=== PATIENT | female | born 2000 | race Caucasian/White ===

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

== ENCOUNTER 2019-01-10 09:45 | Emergency (ER) | payer OTHER, MEDICAID, SELFPAY ==
[2019-01-10 09:45] VITALS: BP 132/70; PULSE 87; RESP 16; TEMP 36.7; O2SAT 99; BMI 36.0
--- NOTE | 2019-01-10 09:57 | US_ITS ---
STUDY: ABDOMINAL ULTRASOUND - RIGHT UPPER QUADRANT REASON FOR VISIT: Female, 18 years old. Right upper quadrant pain. TECHNIQUE: Ultrasound evaluation of the right upper quadrant was performed with real-time and static chavez-scale imaging. TECHNICAL QUALITY: Adequate. COMPARISON: None. FINDINGS: Liver: The liver measures 16.2 cm. There is normal echogenicity of the liver. The bile ducts are within normal limits. There is hepatic color flow. The direction of portal flow is hepatopetal. There is no demonstrated mass lesion. Gallbladder: Normal distended gallbladder. The gallbladder wall measures 3.0 mm. There is a negative sonographic Mcallister's sign. There is no pericholecystic fluid. There are no gallstones. A small amount of sludge is seen within the gallbladder lumen. Common Bile Duct (C.B.D.): The common bile duct measures 4.0 mm. Pancreas: Normal size of the head, body of the pancreas. The tail portion is obscured due to overlying bowel gas. There is normal echogenicity of the pancreas. There is no demonstrated pancreatic mass or cyst. Right Kidney: Normal size of the right kidney. The right kidney measures 12.9 cm x 5.3 cm x 3.9 cm. Normal renal cortex. The right cortex measures 1.5 cm. There is no demonstrated renal mass or cyst. There is no right hydronephrosis. US/Gallbladder IMPRESSION: A small amount of sludge is seen in the gallbladder lumen. Electronically Signed: Derrell Suresh, at 11:04 EDT , Service support ,
--- NOTE | 2019-01-10 09:59 | ED.DCSUM_ITS ---
- ER Visit Summary Date of Service: 01/10/19 Chief Complaint: Abdominal pain History of Present Illness: The patient is a 18 F who is G1, P0 at 16 weeks. She has had upper and lower abdominal pain intermittently over the past 2 weeks. The pain is sharp. Denies any other associated symptoms like nausea, vomiting, or diarrhea. Denies urinary symptoms like burning or bleeding. 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 Denies back pain or fevers. Denies any history of abdominal surgery. She had an ultrasound about a month ago that showed an intrauterine . She has not had any complications with the so far. Denies cardiac or respiratory symptoms. Denies any leg swel ling or leg pain. Physical Examination: Afebrile and vital signs unremarkable. Patient alert and oriented. No acute distress. Skin normal in color. Regular heart rate. No re spiratory distress. Abdomen is tender in the epigastric region. No guarding or rebound. Back is nontender. Extremities nontender with no edema. Strong equal pulses. Test Results: Laboratory studies, urinalysis, right upper quadrant ultrasound, and heart tones are pending. Emergency Department Course and Treatment: I am not sure if the patient's upper and lower abdominal pains are related. I will check labs and right upper quadrant ultrasound. I do not have any suspicion for respiratory, cardiac, or vascular disease at this point. We will check urinalysis and heart tones. I do not have any suspicion for ectopic . She is not having any bleeding or discharge. heart rate in the 130s. Hemoglobin 11.9, otherwise CBC normal. CMP and lipase normal. Right upper quadrant ultrasound shows gallbladder sludge but no other abnormal findings. Urinalysis shows 1+ bacteria. Culture pending. Even that she is and has some lower/suprapubic pain, will treat with Macrobid. Patient's upper abdominal work-up is reassuring. Will start Pepcid. She has follow-up on January 13 with her SHIATSU THERAPIST. She should return for any new or worsening issues. Treatment Plan: As above Disposition: Discharge Impression: 1. Epigastric pain 2. Bacteuria 3. This note was generated with [employer] software. It may contain incorrect words, spelling, and punctuation that were not noted in review of the chart prior to signing ED Disposition - Plan for ED Patient: Referrals: Care Physician,No Primary [Primary Care Provider] -
[2019-01-10 10:25] LABS: Absolute Lymphocyte Count 1.76 X10^3/ul (0.83-4.51); Absolute Neutrophil Count 6.3 X10^3/uL (2.0-7.7); Basophil# 0.01 X10^3/uL; Basophil% 0.1 % (0-1); Eosinophil# 0.31 X10^3/uL; Eosinophils% 3.3 % (0-5); Hematocrit 34.8 % (37-47); Hemoglobin 11.9 g/dl (12.0-15.0); Lymphocyte # 1.76 X10^3/ul (4.0); Lymphocyte % 18.7 % (19-41); Mean Corp Hgb Conc 34.2 g/gl (32-36); Mean Corpuscular Volume 84.9 fL (81-99); Mean Platelet Vol. 10.3 fl (6.2-12.0); Monocyte# 0.96 X10^3/uL; Monocyte% 10.2 % (0-10); Neutrophil # 6.34 X10^3/uL (2.7-7.7); Neutrophil % 67.2 % (47-70); Platelet Count 211 K/mm3 (150-450); RBC Distribution Width CV 12.5 % (11.6-14.6); RBC Distribution Width SD 37.9 fl (35.1-43.9); White Blood Count 9.4 K/mm3 (4.4-11.0)
[2019-01-10 10:26] LABS: POSITIVE COUNT NO; POSITIVE DIFFERENTIAL NO; POSITIVE MORPHOLOGY NO
[2019-01-10 10:40] LABS: AST(SGOT) 10 U/L (15-37); Alanine Aminotransfer ALT/SGPT 27 U/L (13-56); Albumin, Serum 3.2 g/dL (3.2-5.0); Alkaline Phosphatase 53 U/L (45-117); Anion Gap 7 (5-15); BUN 6 mg/dL (7-18); BUN/Creat Ratio 10.5 RATIO (10-20); Calcium,Total 8.4 mg/dL (8.5-10.1); Chloride 110 mmol/L (98-107); Creatinine, Serum 0.57 mg/dL (0.55-1.02); EST Glomerular Filtration Rate 145 mL/min (>60); Est Glom Filt Rate - Afr Amer 175 mL/min (>60); Estimated Creatinine Clearance 154.38 ml/min; Globulin 3.3 g/dL (2.2-4.2); Glucose 87 mg/dL (74-106); Lipase 94 U/L (73-393); Potassium 3.7 mmol/L (3.5-5.1); Protein, Total 6.5 g/dL (6.4-8.2); Sodium Level 140 mmol/L (136-145)
[2019-01-10 11:54] LABS: Mucous, Urine 0 SEEN /hpf (<or=2+); Red Blood Cells-Urine 0 SEEN /hpf (0-5); White Blood Cells 0 SEEN /hpf (0-5)
[2019-01-10 11:58] LABS: Color, Urine Yellow (Yellow); Glucose, Dipstick Normal (Normal); Ketone-Dipstick Negative (Negative); Leukocyte Esterase-Dipstick Negative /ul (Negative); Nitrite-Dipstick Negative (Negative); Occult Blood-Urine Negative /ul (Negative); Protein-Dipstick Negative (Negative); Urine Bilirubin Dipstick Negative (Negative); Urine Clarity Sl. Cloudy (Clear); Urine Urobilinogen Normal (Normal); Urine pH 6.5 (5.0 - 8.0)
[2019-01-10 12:04] LABS: Bacteria 1+ /hpf (None Seen); Squamous Epithelial Cells - UA 0-5 SEEN /hpf (5-10)
--- NOTE | 2019-01-10 12:15 | ED.DEP ---
ED Disposition - Plan for ED Patient: Instructions: ABDOMINAL PAIN, Unknown Cause, (Female) Prescriptions: Nitrofurantoin Macrocrystals [Macrobid] 100 mg PO Q12 #10 cap Prescription Printed Famotidine [Pepcid] 20 mg PO BID #28 tab Prescription Printed Additional Instructions: follow up with your ob on sunday
[2019-01-10 12:36] VITALS: PULSE 80; RESP 16; O2SAT 97
== END 2019-01-10 12:37 | disposition home or self-care (01) ==
LOC: ED 10:01
PROVIDERS: Emergency Provider Emergency Medicine
DX: O26.892 Other specified pregnancy related conditions, second trimester (principal); R10.13 Epigastric pain; R82.71 Bacteriuria; Z3A.16 16 weeks gestation of pregnancy
CPT/HCPCS: 76705; 80053; 81001; 83690; 85025; 87086; 87088; 99284; A4216

== ENCOUNTER 2019-03-23 17:19 | Emergency (ER) | payer OTHER, MEDICAID, SELFPAY ==
[2019-03-23 17:19] VITALS: BP 148/76; PULSE 91; RESP 17; TEMP 37; O2SAT 97; BMI 37.5
--- NOTE | 2019-03-23 17:42 | EKG12_ITS ---
Test Reason : Blood Pressure : / mmHG Vent. Rate : 061 BPM Atrial Rate : 061 BPM P-R Int : 130 ms QRS Dur : 096 ms QT Int : 392 ms P-R-T Axes : 029 031 032 degrees QTc Int : 394 ms Normal sinus rhythm Normal ECG Confirmed by JAGJIT WICK, JESSICA ([id number]), acquisition editor THO HARTMAN ([id number]) on 03/24/2019 9:08:38 AM Referred By: ELIZABETH Confirmed By:JESSICA DANIELSON MD
--- NOTE | 2019-03-23 17:43 | ED.DCSUM_ITS ---
History of Present Illness Chief Complaint: Dizziness Informant: Patient Onset: Days Current Severity: Mild Maximum Severity: Moderate Narrative: Patient presents with a 3-day history of intermittent dizziness and frontal headache. She was at work 2 days ago when she states she became lightheaded. Coworkers said that she was changing color (getting pale). She had a near syncopal episode and started to fall, but her significant other caught her. She had another episode of dizziness today at work and coworkers told her that she was changing color again. She did not pass out today. She is had intermittent frontal headaches that are not necessarily associated with the dizzy episodes. She denies history of head injury. She denies history of migraines. Patient is currently 23 weeks . She has been feeling normal movement. Past Medical History - Allergies and Home Meds Allergies/Adverse Reactions: Allergies chocolate flavor Allergy (Verified 03/23/19 17:19) Anaphylaxis Primary Care Physician: Care Physician,No Primary [Primary Care Provider] - Doctors: [facility] RN CLINICAL RESOURCE Prior records reviewed: Yes Past Medical History: - - Reviewed Lives: Spouse/ Significant Other Smoking Status: Current every day smoker Review of Systems General: Denies: Chills, Fever Eyes: Denies: Visual changes - bilaterally ENT: Denies: Bilateral ear pain Cardiovascular: Denies: Chest pain, Palpitations, Heart racing Respiratory: Denies: Dyspnea, Cough Gastrointestinal: Denies: Abdominal pain, Nausea, Vomiting, Diarrhea Genitourinary: Denies: Dysuria Musculoskeletal: Denies: Back pain Skin: Denies: Rash Neurological: Reports: Headache, - - Dizzy episodes Endocrine: Denies: Polyuria, Polydipsia Hematologic: Denies: Easy bruising Allergy: Denies: Uticaria Physical Exam Vital Signs/Narrative: Vital Signs Temp Pulse Resp BP Pulse Ox 03/23/19 17:19 98.6 F 91 17 148/76 H 97 Inital Vital Signs reviewed: Yes General: Well nourished, Well developed Head: Normocephalic ENT: Moist mucous membranes Neck: Supple Cardiovascular: Regular rate, Regular rhythm Respiratory: No distress, CTA bilaterally Abdomen: Soft, Nontender - Gravid Extremities: Nontender Skin: Normal color, No rash Neurological: Alert, Oriented x3 Psychological: Normal affect Diagnostic/Tx/Re-eval Laboratory Results 03/23/19 03/23/19 03/23/19 17:30 17:30 18:00 WBC 14.3 H RBC 3.66 L Hgb 11.1 L Hct 33.2 L MCV 90.7 MCH 30.3 MCHC 33.4 RDW Std Deviation 41.1 RDW Coeff of Maximo 12.5 Plt Count 219 MPV 10.1 Immature Gran % (Auto) 0.900 Neut % (Auto) 74.5 H Lymph % (Auto) 15.9 L [place] % (Auto) 5.9 Eos % (Auto) 2.5 Baso % (Auto) 0.3 Absolute Neuts (auto) 10.6 H Absolute Lymphs (auto) 2.28 Nucleated RBC % 0 Sodium 142 Potassium 3.7 Chloride 110 H Carbon Dioxide 23.0 Anion Gap 9 BUN 7 Creatinine 0.55 Estim Creat Clear Calc 159.99 Est GFR (MDRD) Af Amer 183 Est GFR (MDRD) Non-Af 152 BUN/Creatinine Ratio 12.8 Glucose 94 Calcium 8.7 Total Bilirubin 0.20 Direct Bilirubin 0.06 AST 12 L ALT 21 Alkaline Phosphatase 69 Total Protein 6.5 Albumin 2.9 L Globulin 3.6 Urine Color Yellow Urine Clarity Clear Urine pH 7.0 Ur Specific Fidelity 1.010 Urine Protein Negative Urine Glucose (UA) Normal Urine Ketones Negative Urine Occult Blood Negative Urine Nitrite Negative Urine Bilirubin Negative Urine Urobilinogen Normal Ur Leukocyte Esterase Negative Urine RBC 0 SEEN Urine WBC 0 SEEN Ur Squamous Epith Cells 0-5 SEEN Urine Bacteria RARE Urine Mucus 0 SEEN - EKG Initial EKG Interpretation: Sinus Rhythm - Sinus at 61 with no acute ischemia. - Medical Decision Making Patient is given IV fluids here. heart tones are measured at 140. She is been up to the restroom multiple times and is ambulating on the armenta with stable gait. Test results were discussed with Dr. Griffin, on-call for RN CLINICAL RESOURCE. She advised that as long as the EKG and blood pressure are okay she can be discharged home. Patient needs to ensure she is drinking more fluids. Blood pressure at the current time is 121/67. ED Disposition - Plan for ED Patient: Disposition: Home or Assisted Living Diagnosis: Dizziness Instructions: DIZZINESS, Unk Cause Referrals: Maggi Griffin MD [STAFF PHYSICIAN] - 5-7 Days
[2019-03-23 17:54] LABS: Absolute Lymphocyte Count 2.28 X10^3/uL (0.83-4.51); Absolute Neutrophil Count 10.6 X10^3/uL (2.0-7.7); Basophil# 0.04 X10^3/uL; Basophil% 0.3 % (0-1); Eosinophil# 0.36 X10^3/uL; Eosinophils% 2.5 % (0-5); Hematocrit 33.2 % (37-47); Hemoglobin 11.1 g/dL (12.0-15.0); Lymphocyte # 2.28 X10^3/ul (4.0); Lymphocyte % 15.9 % (19-41); Mean Corp Hgb Conc 33.4 g/dL (32-36); Mean Corpuscular Hgb 30.3 pg (27.0-32.0); Mean Corpuscular Volume 90.7 fL (81-99); Mean Platelet Vol. 10.1 fl (6.2-12.0); Monocyte# 0.85 X10^3/uL; Monocyte% 5.9 % (0-10); NRBC Flagged by Analyzer 0 % (0-5); Neutrophil # 10.64 X10^3/uL (2.7-7.7); Neutrophil % 74.5 % (47-70); Platelet Count 219 K/mm3 (150-450); RBC Distribution Width CV 12.5 % (11.6-14.6); RBC Distribution Width SD 41.1 fl (35.1-43.9); Red Blood Count 3.66 M/mm3 (4.2-5.4); White Blood Count 14.3 K/mm3 (4.4-11.0)
[2019-03-23] MEDS: 0.9% Normal Saline 1,000 ML 1000 ML IV (18:00)
[2019-03-23 18:11] LABS: AST(SGOT) 12 U/L (15-37); Alanine Aminotransfer ALT/SGPT 21 U/L (13-56); Albumin, Serum 2.9 g/dL (3.2-5.0); Alkaline Phosphatase 69 U/L (45-117); Anion Gap 9 (5-15); BUN 7 mg/dL (7-18); BUN/Creat Ratio 12.8 RATIO (10-20); Bilirubin, Direct 0.06 mg/dL (0.00-0.30); Calcium,Total 8.7 mg/dL (8.5-10.1); Chloride 110 mmol/L (98-107); Creatinine, Serum 0.55 mg/dL (0.55-1.02); EST Glomerular Filtration Rate 152 mL/min (>60); Est Glom Filt Rate - Afr Amer 183 mL/min (>60); Estimated Creatinine Clearance 159.99 ml/min; Globulin 3.6 g/dL (2.2-4.2); Glucose 94 mg/dL (74-106); Potassium 3.7 mmol/L (3.5-5.1); Protein, Total 6.5 g/dL (6.4-8.2); Sodium Level 142 mmol/L (136-145)
[2019-03-23 18:14] LABS: Mucous, Urine 0 SEEN /hpf (<or=2+); Red Blood Cells-Urine 0 SEEN /hpf (0-5); White Blood Cells 0 SEEN /hpf (0-5)
[2019-03-23 18:26] LABS: Color, Urine Yellow (Yellow); Glucose, Dipstick Normal (Normal); Ketone-Dipstick Negative (Negative); Leukocyte Esterase-Dipstick Negative /ul (Negative); Nitrite-Dipstick Negative (Negative); Occult Blood-Urine Negative /ul (Negative); Protein-Dipstick Negative (Negative); Urine Bilirubin Dipstick Negative (Negative); Urine Clarity Clear (Clear); Urine Urobilinogen Normal (Normal)
[2019-03-23 18:56] LABS: Bacteria RARE /hpf (None Seen); Squamous Epithelial Cells - UA 0-5 SEEN /hpf (5-10)
[2019-03-23 19:42] VITALS: BP 121/69; PULSE 78; RESP 16; O2SAT 100
== END 2019-03-23 19:44 | disposition home or self-care (01) ==
PROVIDERS: Emergency Provider Emergency Medicine
DX: O26.892 Other specified pregnancy related conditions, second trimester (principal); R42 Dizziness and giddiness; R51 Headache; O99.332 Smoking (tobacco) complicating pregnancy, second trimester; F17.200 Nicotine dependence, unspecified, uncomplicated; Z3A.23 23 weeks gestation of pregnancy
CPT/HCPCS: 80048; 80076; 81001; 85025; 93005; 96360; 99283; J7030; A4216

== ENCOUNTER 2019-07-10 17:55 | Inpatient (IN) | payer OTHER, MEDICAID, SELFPAY ==
[2019-07-10 18:17] VITALS: BMI 40.9
[2019-07-10] MEDS: Lactated Ringers 1,000 ML 999 ML IV (18:25)
[2019-07-10 19:00] LABS: Absolute Lymphocyte Count 2.79 X10^3/uL (0.83-4.51); Absolute Neutrophil Count 9.9 X10^3/uL (2.0-7.7); Basophil# 0.06 X10^3/uL; Basophil% 0.4 % (0-1); Eosinophil# 0.25 X10^3/uL; Eosinophils% 1.7 % (0-5); Hematocrit 33.4 % (37-47); Hemoglobin 11.1 g/dL (12.0-15.0); Lymphocyte # 2.79 X10^3/ul (4.0); Lymphocyte % 19.3 % (19-41); Mean Corp Hgb Conc 33.2 g/dL (32-36); Mean Corpuscular Hgb 29.1 pg (27.0-32.0); Mean Corpuscular Volume 87.7 fL (81-99); Monocyte# 1.24 X10^3/uL; Monocyte% 8.6 % (0-10); NRBC Flagged by Analyzer 0 % (0-5); Neutrophil # 9.94 X10^3/uL (2.7-7.7); Neutrophil % 68.8 % (47-70); Platelet Count 285 K/mm3 (150-450); RBC Distribution Width CV 12.6 % (11.6-14.6); RBC Distribution Width SD 40.3 fl (35.1-43.9); Red Blood Count 3.81 M/mm3 (4.2-5.4); White Blood Count 14.5 K/mm3 (4.4-11.0)
--- NOTE | 2019-07-10 19:23 | HP.PCM_ITS ---
- Problem List (1) Rupture of membranes with clear amniotic fluid Status: Acute (2) 38 weeks gestation of Status: Acute (3) Primiparous Status: Acute (4) Tobacco use Status: Acute (5) Marijuana use Status: Acute History Date of Admission: 07/10/19 Final FUNMILAYO: 07/20/19 Gestational age: 38 Weeks and 4 Days History of this : This is a 18 year-old, G 1, P 0, at 38 weeks gestational age who presents with SROM for clear fluid around 5:30 pm. No ctx, vb. Good FM. Medical History: Medical History (Last Updated 07/10/19 @ 19:25 by Corinne Hdz DO) History of ankle fracture Z87.81 Surgical History: Surgical History (Last Updated 07/10/19 @ 19:25 by Corinne Hdz DO) History of tonsillectomy and adenoidectomy Z98.890 Allergies chocolate flavor Allergy (Verified 03/23/19 17:19) Anaphylaxis Home Medications: Home Medications Vits [Prenatabs FA] 1 tab PO DAILY 01/10/19 Famotidine [Pepcid] 20 mg PO BID 07/10/19 Smoking Status: Light Smoker (<10/day) Substance Use Type: Marijuana NST - FHR Rate Baby A NST Reactive:: Yes FHR Category:: Category I Uterine Activity:: Quiet History Past Pregnancies: Past Pregnancies Delivery Date Name GA/ Weeks Outcome Route Wt Infant Sex Labor Length Anesthesia Delivery Location Provider FOB Labs: GBS neg Syphilis NR Hep C neg 1 hr GTT 121 Hgb 12.1 Plt 233 HIV NR GC/CT neg UDS positive Rh positive RI Expected Delivery Method: Spontaneous Vaginal Review of Systems Gynecological: Reports: - - +SROM, no ctx, no vb, good FM Physical Exam General: Alert, No apparent distress HEENT: Atraumatic Abdomen: Soft, Non Tender, Gravid Extremities:: No edema Neurological: Neuro grossly intact GENERAL SUPERVISOR: Normal external genitalia Estimated gestational size: Appropriate for gestational size Presentation: Cephalic Cervix Dilation (cm): 4 - per RN Effacement (%): 90 Assessment/Plan All Active Problems Rupture of membranes with clear amniotic fluid (Acute) 38 weeks gestation of (Acute) Primiparous (Acute) Tobacco use (Acute) Marijuana use (Acute) This is a 18 year-old, G 1, P 0, at 38 weeks gestational age admitted for SROM at home for clear fluid. - Admit for routine intrapartum care - Pit gtt - Epidural prn - GBS neg
[2019-07-10] MEDS: Lactated Ringers 1,000 ML 200 ML IV (19:44)
[2019-07-10] MEDS: fentaNYL-bupivacaine (epidural) 100 ML BAG EPIDURAL (20:00)
[2019-07-10] MEDS: Oxytocin 30 units/NS 500 ml 30 UNITS/500 ML IV.SOLN 334 UNITS IV (21:45)
--- NOTE | 2019-07-10 22:32 | PCM.OPRPT ---
Problem List (1) Rupture of membranes with clear amniotic fluid Status: Acute (2) 38 weeks gestation of Status: Acute (3) Primiparous Status: Acute (4) Tobacco use Status: Acute (5) Marijuana use Status: Acute Report of Operation Date of Procedure: 07/10/19 Pre-Operative Diagnosis: 38 weeks gestation, primiparous patient, SROM, labor Post-Operative Diagnosis: As above, rapid labor Surgery/Procedure Performed:: Spontaneous vaginal delivery Description of Surgical Findings:: Patient presented after SROM and she was 4 cm dilated on admission. She delivered within about 5 to 6 hours. Rapid labor. Viable female infant in vertex presentation. Clear fluid. Intact and normal-appearing placenta with a three-vessel cord. Type of Anesthesia:: Epidural Special Medications: None Specimen's removed: Placenta Drains: Eduardo Estimated Blood Loss (mL): 200 Description of Procedure: Patient rapidly progressed in labor. She pushed for about 4 contractions. Head, anterior shoulder, posterior shoulder, followed by the body of the infant was delivered without any force or delay. Viable female was delivered atraumatically and placed on maternal abdomen. The cord was clamped and cut after 60 sec delay by the father of the baby. Cord blood was obtained. The placenta was delivered with fundal massage. The placenta was intact and normal-appearing with a three-vessel cord. The uterus was explored x1. A left sulcal tear was repaired with 3-0 Vicryl in the usual fashion. A left labial tear was also repaired in a running fashion with 3-0 Vicryl. Fundus was firm and bleeding hemostatic. Instrument and sponge counts were correct. Grafts/Implants Used: None - Complications None - Admit VTE Documentation VTE Present on Admission: No Vaginal Delivery Maternal Presentation: Active Labor, Spontaneous Rupture of Membranes Amniotic Membrane Rupture Type: Spontaneous at home Amniotic Fluid Description: Clear Surgery/ Procedure Performed: Spontaneous Vaginal Delivery Type of Anesthesia: Epidural Presentation: Vertex Placental Delivery Description: Expressed Cord Vessel Description: 3 Vessels Cord Entanglement: None Drain: Eduardo to straight drain Infant A gender: Female Episiotomy Description: None Medications given after delivery: IV Pitocin Complications: None
[2019-07-10 22:35] LABS: Amphetamine Urine VISTA NEGATIVE (<1000 ng/mL); Barbiturate Urine VISTA NEGATIVE (< 200 ng/mL); Benzodiazepine Urine VISTA NEGATIVE (< 200 ng/mL); Cocaine Urine VISTA NEGATIVE (< 300 ng/mL); Ecstacy Urine VISTA NEGATIVE (< 500 ng/mL); Methadone Urine VISTA NEGATIVE (< 300 ng/mL); PCP Urine VISTA NEGATIVE (< 25 ng/mL); THC Urine VISTA NEGATIVE (< 50 ng/mL); Vista UDS pH Range 6
[2019-07-11 03:40] VITALS: BP 117/45; PULSE 92; RESP 18; TEMP 37.3
[2019-07-11] MEDS: Ibuprofen 600 MG Tablet PO ×3 (04:46→23:47)
[2019-07-11] MEDS: Dibucaine 30 GM Tube 1 APPLIC TOPICAL (04:54)
--- NOTE | 2019-07-11 07:37 | PCM.PN.OB ---
Patient Problems: Active and Suspected Problems (Last Updated 07/10/19 @ 19:25 by Corinne Hdz DO) Rupture of membranes with clear amniotic fluid (Acute) 38 weeks gestation of (Acute) Primiparous (Acute) Tobacco use (Acute) Marijuana use (Acute) Subjective: Doing well. Ambulating without difficulty. Denies lightheadedness, dizziness, chest pain, shortness of breath, leg pain. Tolerating a diet without nausea or vomiting. Lochia normal. Some burning when urine hits labial tear. Bottlefeeding. Pain well controlled. - Physical Exam Vitals/I&O's: Vital Signs Temp Pulse Resp BP 99.2 F H 92 18 117/45 L 07/11/19 03:40 07/11/19 03:40 07/11/19 03:40 07/11/19 03:40 Weight: 269 lb 2.951 oz Body Mass Index (BMI) 40.9 Intake and Output for Last 24 Hours 07/09/19 07/10/19 07/11/19 23:59 23:59 23:59 Intake Total 1833.33 / 1833.33 Output Total 600 / 600 Balance 1233.33 / 1233.33 General: Alert, No apparent distress HEENT: Atraumatic Abdomen: Non-Distended Extremities: No edema, No Calf Tenderness Skin: No rashes Neurological: Neuro grossly intact Psych/Mental Status: Normal Affect, Appropriate Laboratory Results 07/10/19 18:25: WBC 14.5 H, RBC 3.81 L, Hgb 11.1 L, Hct 33.4 L, MCV 87.7, MCH 29.1, MCHC 33.2, RDW Std Deviation 40.3, RDW Coeff of Maximo 12.6, Plt Count 285, MPV 10.0, Immature Gran % (Auto) 1.200 H, Neut % (Auto) 68.8, Lymph % (Auto) 19.3, [place] % (Auto) 8.6, Eos % (Auto) 1.7, Baso % (Auto) 0.4, Absolute Neuts (auto) 9.9 H, Absolute Lymphs (auto) 2.79, Nucleated RBC % 0 07/10/19 18:25: Blood Type O POSITIVE, Antibody Screen NEGATIVE 07/10/19 22:00: Urine Opiates Screen NEGATIVE, Urine Methadone Screen NEGATIVE, Ur Barbiturates Screen NEGATIVE, Ur Phencyclidine Scrn NEGATIVE, Ur Amphetamines Screen NEGATIVE, U Methamphetamin-MDMA NEGATIVE, U Benzodiazepines Scrn NEGATIVE, Urine Cocaine Screen NEGATIVE, U Cannabinoids Screen NEGATIVE, Ur Drug Screen Comment Current Medications Acetaminophen (Tylenol) 1,000 mg PO Q8H PRN PRN PRN Reason: Pain Score 1-3/10 Bisacodyl (Dulcolax) 10 mg RECTAL UD PRN PRN Reason: If no BM Dibucaine (Dibucaine) 1 applic TOPICAL TID PRN PRN; Protocol PRN Reason: Discomfort Last Admin: 07/11/19 04:54 Dose: 1 applic Documented by: Hydrocortisone (Hytone) 1 applic TOPICAL TID PRN PRN; Protocol PRN Reason: Discomfort Ibuprofen (Motrin) 600 mg PO Q6H PRN PRN PRN Reason: Pain Score 1-3/10 Last Admin: 07/11/19 04:46 Dose: 600 mg Documented by: Methylergonovine Maleate (Methergine) 0.2 mg IM X1 PRN PRN Reason: Excess bleeding/uterine atony Ondansetron HCl (Zofran) 4 mg IV Q4H PRN PRN PRN Reason: Nausea Senna/Docusate Sodium (Senokot-S, Radha-Colace) 1 - 2 tablet PO DAILY PRN PRN PRN Reason: Constipation Simethicone (Mylicon) 80 mg PO PCHS PRN PRN Reason: Indigestion/Stomach pain Sodium Chloride () 5 - 15 ml IV UD PRN PRN Reason: SALINE FLUSH Medical Necessity - Tobacco Use Smoking Status: Light Smoker (<10/day) Assessment/Plan All Active Problems (Last Updated 07/10/19 @ 19:25 by Corinne Hdz DO) Rupture of membranes with clear amniotic fluid (Acute) 38 weeks gestation of (Acute) Primiparous (Acute) Tobacco use (Acute) Marijuana use (Acute) PPD#1 s/p - Pt doing well - Bottlefeeding - Dispo: She states she might want to go home today. Discussed that she cannot be discharged until 24 hours after delivery, so she cannot go home until late tonight. She is considering discharge. Reviewed discharge instructions and follow up in case she does decide to go home
--- NOTE | 2019-07-11 07:39 | DCINST_ITS ---
Discharge Diet: No Restrictions Discharge Activity: May Drive, May Shower, May Take a Tub Bath May resume sexual activity in: 6 weeks Ice area for (Minutes): 15 Weight Bearing Status: Full weight bearing Lifting Restrictions: None Call your doctor if you observe: Fever of 101 or Higher, Inability to urinate, Inability to have a bowel movement, Using more than one pad per hour, Shortness of breath, Dizziness, Chest pain, Increased palpitations (irregular heartbeat), Calf discomfort, Uncontrolled pain Cleanse incision/area with: Soap & Water Instructions: After a Vaginal Additional Instructions: If you experience any of the following, contact your healthcare provider. * Bleeding that soaks a pad every hour for 2 hours * Fever 100.4 or higher * Unrelieved incision or abdominal pain * Swelling, redness, discharge or bleeding from your incision or episiotomy site * Your incision begins to separate * Problems urinating (including inability to urinate or burning while urinating). * Visual changes * Severe headache * Flu-like symptoms * Pain or redness in one of both of your breasts * Pain, warmth, tenderness or swelling in your legs, especially the calf area * Frequent nausea and vomiting * Symptoms of depression or anxiety If you experience any of the following, call 911 or go to the nearest Emergency Room. * Chest pain * Problems breathing * Seizure activity * Partial or complete paralysis of a body part, slurred speech, weakness or drooping of the face, or a sudden inability to walk or hold your balance Allergies/Adverse Reactions: Allergies chocolate flavor Allergy (Verified 03/23/19 17:19) Anaphylaxis Medications to take at Discharge Vits [Prenatabs FA] 1 tab PO DAILY 01/10/19 Famotidine [Pepcid] 20 mg PO BID 07/10/19 Please Follow Up With: Corinne Hdz DO When: 1-2 weeks, and in 6 weeks Primary Care Physician: Care Physician,No Primary [Primary Care Provider] - Test Results: Test results from this visit will be discussed in further detail at your follow- up appointment, if applicable. Proposed Discharge Date: 07/11/19 - Patient is considering discharge today 24 hours after delivery. Call cosmetic surgeon provider if she desires to go home
[2019-07-11 08:45] VITALS: BP 121/65; PULSE 100; RESP 18; TEMP 36.3; O2SAT 97
--- NOTE | 2019-07-11 09:16 | NURSING ---
Rn instructing pt to call if she passes a clot larger then the size of an egg. Pt reports that she had passed one earlier around 0630 and that it was still in the trash. This RN observed clot. Beefy red and size of an egg. Instructed pt to call if this happened again. VSS. Will continue to monitor.
[2019-07-11 11:46] VITALS: BP 100/49; PULSE 89; RESP 16; TEMP 37.2; O2SAT 97
--- NOTE | 2019-07-11 15:00 | CASEMGMT ---
Social Work Assessment Labor and Delivery Unit Date of Referral: 07/11/19 Time of Referral: 00:53 Referred By: Dr. Hdz Date of Intervention: 07/11/19 Time of Intervention: 15:00 Reason for Referral: 18 year old - teen . Mother of baby (MOB) with history of being homeless during this . MOb with history of positive THC during . History obtained from: MOB, chart, nursing staff. Household composition: MOB and this infant, Nadia Ferrer plan to continue to live with MOB's mother, Marie. This social welfare research worker broached topic of MOB being homeless. MOB stating to have been homeless last summer and to have believed that [facility] was going to make things work. MOB stating to have had plan to obtain housing but to have gotten to 2018 and decided that MOB needed help. MOB then moving in with Marie. MOB stating that Marie is supportive and agreeable to [facility] and Nadia staying with Marie at this time. Father of baby currently lives with a friend. Patient's parent/guardian status: MOB is own person. MOB stating to have been in relationship with Father of baby (FOB), John Ferrer for 1 1/2 years. MOB stating that FOB is somewhat supportive. MOB stating that was not planned for MOB but that FOB was planning and is excited about . MOB stating to have accepted and did not consider any other options but to keep . MOB stating that conception was consensual. MOB stating to feel safe with FOB. MOB stating that FOB is 19. Educational Status: MOB stating to have completed high school and to have been working at [employer] full-time. MOB stating plans to look into other employment options as [employer] is cutting back hours. MOB stating plan to work after adjusting to being a mom. MOB stating that FOB currently got fired and is searching for other work. Financial Status: MOB stating that MOB's mother is able to assist financially while MOB is working on finding a job. Supplies: MOB stating to have all needed supplies within the home, including a crib, car seat, infant clothing, formula, bottles etc. MOB stating plan to bottle feed infant and that is doing well with bottle feeding. Childcare/Caregiver(s): MOB plans to be primary caregiver for infant with MOB's mother to assist with child care leader when MOB returns to working. MOB's mother does work outside of the home and this is something that MOB is planning to keep in mind when starting to work again. Transportation: MOB stating to have a car but it needs work. MOB stating that MOB's mother allows MOB to drive her car when MOB needs to go to an appointment. MOB's mother also assist with transportation. Programs/Agencies Involved: MOB stating to be involved with [employer], [facility], Job and Family services (Food stamps/medical). Children Services/Legal Issues: MOB denies any children services history of legal issues for MOB or FOB. Mental Health History: MOB stating to have a history of depression and anxiety. MOB stating to have counseling services through [employer] and this is helpful. MOB stating that last appointment was in 2018. This social welfare research worker encouraging MOB to continue with follow-up care. MOB stating to have been sick and just stopped going. This social welfare research worker encouraging MOB to set up another appointment as per MOB's report this was a helpful services for MOB. Educated MOB on the importance of managing own mental health in order to be able to care for self and infant. MOB denies any medication to manage mental health. MOB denies any history of suicidal thoughts or plans. Broached topic of depression, signs/symptoms for MOB to be aware of. PHQ-9 did no trigger for MOB. Substance Use History: MOB stating a history of THC use with last use being in early . MOB denies any current use or plan to continue with THC usage and educated on risk of using THC around infant if MOB would change mind. MOB stating to smoke 5-6 cigarettes (tobacco) a day. FOB also smokes tobacco. MOB stating that there is no smoking inside the home or around . MOB denies any other substance abuse or use (Heroine, Cocaine, Alcohol, Meth, or Prescription Drug). MOB denies any other substance abuse for FOB. Maternal and Drug Screens: MOB with positive tox screen on 01/13/19 and negative tox screen on admission to maternity unit. Infant with pending meconium and negative urine tox screen. Family/Social Stressors: MOB with new mom responsibilities. MOB stating to have never changed an infant diaper before and this is the first time MOB has been around a baby. MOB stating to have now changed a diaper and to be aware that this is a part of being a parent. Infant beginning to fuss during assessment, MOB able to sooth infant. Support Systems: MOB stating MOB's mother as main support. Depression and Anxiety/Shaken Baby/Safe Sleeping: MOB educated on depression and anxiety, shaken baby, safe sleeping and provided resources on all information as well. MOB provided with information on [facility] and [facility]. MOB stating to have already obtained a txt message from [facility] and is verbalizing intention to follow up with establishing referral. ASSESSMENT: Met with patient in room. Introduced self as well as social welfare research worker role. MOB holding infant during assessment and able to manage infant as well as continue conversation with this social welfare research worker. MOB gazing at often and stating to have a connection with infant. MOB stating to not be sure how MOB feels about being a mother now. MOB presenting with a positive and engaged affect. Active listening and support provided. Safe Plan of Care for related to substance use: MOB does not plant continue with THC usage but able to voice that infant would be with MOB's mother if MOB would decide to use THC again. PLAN: Will continue to follow for pending Meconium results and make appropriate referrals. Infant to discharge to home with MOB and MOB's mother. No other services requested or indicated. Brandon LIND, ANAND
[2019-07-11 15:45] VITALS: BP 110/47; PULSE 89; RESP 16; TEMP 36.9; O2SAT 98
[2019-07-11 20:10] VITALS: BP 122/68; PULSE 82; RESP 16; TEMP 36.4
[2019-07-12] MEDS: Acetaminophen 500 MG Tablet 1000 MG PO (01:41)
[2019-07-12 01:50] VITALS: BP 126/70; PULSE 80; RESP 18; TEMP 36.3
[2019-07-12 08:40] VITALS: BP 96/39; PULSE 76; RESP 16; TEMP 37
[2019-07-12 08:51] VITALS: BP 119/69
[2019-07-12] MEDS: Ibuprofen 600 MG Tablet PO (08:55)
--- NOTE | 2019-07-12 09:08 | PCM.PN.OB ---
Patient Problems: Active and Suspected Problems (Last Updated 07/10/19 @ 19:25 by Corinne Hdz DO) Rupture of membranes with clear amniotic fluid (Acute) 38 weeks gestation of (Acute) Primiparous (Acute) Tobacco use (Acute) Marijuana use (Acute) Subjective: Pain well controlled. Average lochia. - Physical Exam Vitals/I&O's: Vital Signs Temp Pulse Resp BP Pulse Ox 98.6 F 76 16 119/69 98 07/12/19 08:40 07/12/19 08:40 07/12/19 08:40 07/12/19 08:51 07/11/19 15:45 Oxygen Delivery Method Room Air Weight: 122.1 kg Body Mass Index (BMI) 40.9 Intake and Output for Last 24 Hours 07/10/19 07/11/19 07/12/19 23:59 23:59 23:59 Intake Total 1833.33 / 1833.33 Output Total 600 / 600 Balance 1233.33 / 1233.33 General: Alert, Cooperative, No apparent distress Current Medications Acetaminophen (Tylenol) 1,000 mg PO Q8H PRN PRN PRN Reason: Pain Score 1-310 Last Admin: 07/12/19 01:41 Dose: 1,000 mg Documented by: Bisacodyl (Dulcolax) 10 mg RECTAL UD PRN PRN Reason: If no BM Dibucaine (Dibucaine) 1 applic TOPICAL TID PRN PRN; Protocol PRN Reason: Discomfort Last Admin: 07/11/19 04:54 Dose: 1 applic Documented by: Hydrocortisone (Hytone) 1 applic TOPICAL TID PRN PRN; Protocol PRN Reason: Discomfort Ibuprofen (Motrin) 600 mg PO Q6H PRN PRN PRN Reason: Pain Score 1-310 Last Admin: 07/12/19 08:55 Dose: 600 mg Documented by: Methylergonovine Maleate (Methergine) 0.2 mg IM X1 PRN PRN Reason: Excess bleeding/uterine atony Ondansetron HCl (Zofran) 4 mg IV Q4H PRN PRN PRN Reason: Nausea Senna/Docusate Sodium (Senokot-S, Radha-Colace) 1 - 2 tablet PO DAILY PRN PRN PRN Reason: Constipation Simethicone (Mylicon) 80 mg PO PCHS PRN PRN Reason: Indigestion/Stomach pain Sodium Chloride () 5 - 15 ml IV UD PRN PRN Reason: SALINE FLUSH Medical Necessity - Tobacco Use Smoking Status: Light Smoker (<10/day) Assessment/Plan All Active Problems (Last Updated 07/10/19 @ 19:25 by Corinne Hdz DO) Rupture of membranes with clear amniotic fluid (Acute) 38 weeks gestation of (Acute) Primiparous (Acute) Tobacco use (Acute) Marijuana use (Acute) day #2 status post vaginal delivery. Infant is bottlefeeding and doing well. Patient is ready for discharge home.
[2019-07-12 12:16] VITALS: BP 138/60; PULSE 92; RESP 16; TEMP 36.7
[2019-07-12 12:45] VITALS: BP 138/60; PULSE 92; RESP 16; TEMP 36.7
== END 2019-07-12 12:45 | disposition home or self-care (01) | DRG 806 ==
PROVIDERS: Admitting Provider Obstetrics & Gynecology; Visit Provider Obstetrics & Gynecology
DX: O62.3 Precipitate labor (principal); O99.324 Drug use complicating childbirth; Z37.0 Single live birth; O99.334 Smoking (tobacco) complicating childbirth; O70.0 First degree perineal laceration during delivery; F12.90 Cannabis use, unspecified, uncomplicated; F17.200 Nicotine dependence, unspecified, uncomplicated
CPT/HCPCS: 59025; 59050; 80307; 85025; 86850; 86900; 86901; 99218; J7120; G0378

== ENCOUNTER 2019-11-27 00:16 | Emergency (ER) | payer OTHER, MEDICAID, SELFPAY ==
[2019-11-27] VITALS (7 sets, daily range): BP systolic 128–178; BP diastolic 65–126; PULSE 56–114; RESP 14–18; TEMP 37; O2SAT 96–98; BMI 38.4
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
--- NOTE | 2019-11-27 00:36 | EKG12_ITS ---
Test Reason : Blood Pressure : / mmHG Vent. Rate : 069 BPM Atrial Rate : 069 BPM P-R Int : 138 ms QRS Dur : 094 ms QT Int : 358 ms P-R-T Axes : 044 039 033 degrees QTc Int : 383 ms Sinus rhythm with marked sinus arrhythmia Otherwise normal ECG Confirmed by NAY GROSS ([id number]), script editor MARIA E MURRAY ([id number]) on 12/01/2019 11:32:25 AM Referred By: Confirmed By:NAY GROSS
[2019-11-27 01:10] LABS: Absolute Lymphocyte Count 2.08 X10^3/uL (0.83-4.51); Absolute Neutrophil Count 3.9 X10^3/uL (2.0-7.7); Basophil# 0.03 X10^3/uL; Basophil% 0.4 % (0-1); Eosinophil# 0.25 X10^3/uL; Eosinophils% 3.6 % (0-5); Hematocrit 35.6 % (37-47); Lymphocyte # 2.08 X10^3/ul (4.0); Lymphocyte % 30.3 % (19-41); Mean Corp Hgb Conc 30.9 g/dL (32-36); Mean Corpuscular Hgb 23.1 pg (27.0-32.0); Mean Corpuscular Volume 74.6 fL (81-99); Mean Platelet Vol. 9.9 fl (6.2-12.0); Monocyte# 0.54 X10^3/uL; Monocyte% 7.9 % (0-10); NRBC Flagged by Analyzer 0 % (0-5); Neutrophil # 3.94 X10^3/uL (2.7-7.7); Neutrophil % 57.5 % (47-70); Platelet Count 303 K/mm3 (150-450); RBC Distribution Width CV 16.5 % (11.6-14.6); RBC Distribution Width SD 43.9 fl (35.1-43.9); Red Blood Count 4.77 M/mm3 (4.2-5.4); White Blood Count 6.9 K/mm3 (4.4-11.0)
[2019-11-27 01:26] LABS: Internal QC Validated? YES +Cl - CLEAR BKGD; Pregnancy, Serum, hCG Quali. NEGATIVE Negative
[2019-11-27 01:37] LABS: Amphetamine Urine VISTA NEGATIVE (<1000 ng/mL); Barbiturate Urine VISTA NEGATIVE (< 200 ng/mL); Benzodiazepine Urine VISTA NEGATIVE (< 200 ng/mL); Cocaine Urine VISTA NEGATIVE (< 300 ng/mL); Ecstacy Urine VISTA NEGATIVE (< 500 ng/mL); Methadone Urine VISTA NEGATIVE (< 300 ng/mL); PCP Urine VISTA NEGATIVE (< 25 ng/mL); THC Urine VISTA POSITIVE (< 50 ng/mL); Vista UDS pH Range 5
[2019-11-27 01:42] LABS: ALB/GLOB Ratio 1.2 RATIO (0.9-2.4); AST(SGOT) 34 U/L (15-37); Alanine Aminotransfer ALT/SGPT 57 U/L (13-56); Albumin, Serum 4.2 g/dL (3.2-5.0); Alkaline Phosphatase 78 U/L (45-117); Anion Gap 7 (5-15); BUN 13 mg/dL (7-18); BUN/Creat Ratio 13.8 RATIO (10-20); Chloride 112 mmol/L (98-107); Creatinine, Serum 0.94 mg/dL (0.55-1.02); EST Glomerular Filtration Rate 81 mL/min (>60); Est Glom Filt Rate - Afr Amer 98 mL/min (>60); Estimated Creatinine Clearance 90.12 ml/min; Globulin 3.5 g/dL (2.2-4.2); Glucose 101 mg/dL (74-106); Potassium 3.4 mmol/L (3.5-5.1); Protein, Total 7.7 g/dL (6.4-8.2); Sodium Level 142 mmol/L (136-145); Thyroid Stim Hormone (TSH) 0.41 uIU/mL (0.358-3.74)
--- NOTE | 2019-11-27 01:49 | ED.RN ---
CALLED [facility] TO SEE THIS PT, AMANDA IS [employer]ACHINE [employer]END[employer]
--- NOTE | 2019-11-27 02:25 | ED.RN ---
[facility] CALLED BACK, AND ARE CURRENTLY ON THE PHONE WITH THIS PT
[2019-11-27 02:35] LABS: Mucous, Urine 0 SEEN /hpf (<or=2+); Red Blood Cells-Urine 0 SEEN /hpf (0-5); White Blood Cells 0 SEEN /hpf (0-5)
[2019-11-27 02:38] LABS: Color, Urine Yellow (Yellow); Glucose, Dipstick Normal (Normal); Ketone-Dipstick 5 mg/dl (Negative); Leukocyte Esterase-Dipstick 25 /ul (Negative); Nitrite-Dipstick Negative (Negative); Occult Blood-Urine 25 /ul (Negative); Protein-Dipstick 100 mg/dl (Negative); Specific Gravity, Urine 1.025 (1.002-1.030); Urine Clarity Turbid (Clear); Urine Urobilinogen 4 mg/dl (Normal)
[2019-11-27 02:42] LABS: Urine Bilirubin Dipstick 1 mg/dL (Negative)
[2019-11-27 02:44] LABS: Bacteria 3+ /hpf (None Seen); Squamous Epithelial Cells - UA 0-5 SEEN /hpf (5-10)
== END 2019-11-27 08:24 ==
PROVIDERS: Emergency Provider Emergency Medicine
DX: R45.851 Suicidal ideations (principal); F32.9 Major depressive disorder, single episode, unspecified; S51.812A Laceration without foreign body of left forearm, initial encounter; S71.112A Laceration without foreign body, left thigh, initial encounter; X78.9XXA Intentional self-harm by unspecified sharp object, initial encounter; Y93.9 Activity, unspecified; Y92.9 Unspecified place or not applicable; Z79.899 Other long term (current) drug therapy; F12.90 Cannabis use, unspecified, uncomplicated; F17.200 Nicotine dependence, unspecified, uncomplicated
CPT/HCPCS: 80053; 80307; 80320; 81001; 84443; 84703; 85025; 93005; 99285; G0480

== ENCOUNTER 2020-02-10 03:22 | Emergency (ER) | payer OTHER, MEDICAID, SELFPAY ==
[2019-11-27 00:17] VITALS: BMI 38.4
[2020-02-10 03:25] VITALS: BP 106/99; PULSE 113; RESP 16; TEMP 36.6; O2SAT 100; BMI 38.3
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
[2020-02-10 04:01] LABS: Absolute Lymphocyte Count 2.37 X10^3/uL (0.83-4.51); Absolute Neutrophil Count 7.4 X10^3/uL (2.0-7.7); Basophil# 0.04 X10^3/uL; Basophil% 0.4 % (0-1); Eosinophils% 2.7 % (0-5); Hematocrit 37.6 % (37-47); Hemoglobin 11.8 g/dL (12.0-15.0); Lymphocyte # 2.37 X10^3/ul (4.0); Lymphocyte % 21.4 % (19-41); Mean Corp Hgb Conc 31.4 g/dL (32-36); Mean Corpuscular Hgb 25.1 pg (27.0-32.0); Mean Corpuscular Volume 79.8 fL (81-99); Mean Platelet Vol. 9.7 fl (6.2-12.0); Monocyte# 0.92 X10^3/uL; Monocyte% 8.3 % (0-10); NRBC Flagged by Analyzer 0 % (0-5); Neutrophil # 7.38 X10^3/uL (2.7-7.7); Neutrophil % 66.8 % (47-70); Platelet Count 289 K/mm3 (150-450); RBC Distribution Width CV 17.2 % (11.6-14.6); RBC Distribution Width SD 49.7 fl (35.1-43.9); Red Blood Count 4.71 M/mm3 (4.2-5.4); White Blood Count 11.1 K/mm3 (4.4-11.0)
[2020-02-10 04:19] LABS: Alcohol, Blood (Medical)-Serum < 3.0 mg/dL
[2020-02-10 04:20] LABS: Anion Gap 8 (5-15); BUN 12 mg/dL (7-18); BUN/Creat Ratio 14.8 RATIO (10-20); Calcium,Total 8.5 mg/dL (8.5-10.1); Chloride 111 mmol/L (98-107); Creatinine, Serum 0.81 mg/dL (0.55-1.02); EST Glomerular Filtration Rate 96 mL/min (>60); Est Glom Filt Rate - Afr Amer 116 mL/min (>60); Estimated Creatinine Clearance 103.71 ml/min; Glucose 91 mg/dL (74-106); Potassium 3.5 mmol/L (3.5-5.1); Sodium Level 144 mmol/L (136-145)
[2020-02-10 04:23] VITALS: RESP 16
[2020-02-10 04:53] LABS: Internal QC Validated? YES +Cl - CLEAR BKGD; Pregnancy, Urine Negative Negative
[2020-02-10 05:15] LABS: Amphetamine Urine VISTA NEGATIVE (<1000 ng/mL); Barbiturate Urine VISTA NEGATIVE (< 200 ng/mL); Benzodiazepine Urine VISTA NEGATIVE (< 200 ng/mL); Cocaine Urine VISTA NEGATIVE (< 300 ng/mL); Ecstacy Urine VISTA NEGATIVE (< 500 ng/mL); Methadone Urine VISTA NEGATIVE (< 300 ng/mL); PCP Urine VISTA NEGATIVE (< 25 ng/mL); THC Urine VISTA POSITIVE (< 50 ng/mL); Vista UDS pH Range 5
--- NOTE | 2020-02-10 05:21 | ED.RN ---
[facility] CALLED AND REPORT FAXED
[2020-02-10 05:39] VITALS: PULSE 72; RESP 16
[2020-02-10 06:21] VITALS: RESP 18
--- NOTE | 2020-02-10 08:04 | NURSING ---
20 MIN ETA FROM PHYSICANS
[2020-02-10 08:24] VITALS: BP 115/66; PULSE 80; RESP 16; TEMP 37; O2SAT 99
--- NOTE | 2020-02-10 09:35 | ED.RN ---
THIS NURSE CONTACTED [facility] CONCERN THAT THE PT NEEDS TO CALL OFF WORK. AT THIS POINT, THE PT HAS NOT ARRIVED AT [facility]. THIS NURSE CONTACTED [facility] TO REQUEST THE TRANSPORT CREW ALLOW THE PT TO CALL OFF WORK. PHYSICIAN DISPATCH WAS GOING TO SEND THE REQUEST TO THE CREW
== END 2020-02-10 08:43 ==
PROVIDERS: Emergency Provider Emergency Medicine
DX: F32.9 Major depressive disorder, single episode, unspecified (principal); R45.851 Suicidal ideations; F17.200 Nicotine dependence, unspecified, uncomplicated
CPT/HCPCS: 36415; 80048; 80307; 80320; 81025; 85025; 99285; G0480

== ENCOUNTER 2020-02-25 20:19 | Emergency (ER) | payer OTHER, MEDICAID, SELFPAY ==
[2020-02-25 20:20] VITALS: BP 123/71; PULSE 85; RESP 18; TEMP 36.2; O2SAT 97; BMI 37.9
--- NOTE | 2020-02-25 20:50 | ED.DCSUM_ITS ---
- ER Visit Summary Date of Service: 02/25/20 Chief Complaint: Sores/rash History of Present Illness: The patient is a 19 F with painful sores near her vagina since yesterday. She found out that her previous partner was unfaithful. She is on her period now. She denies any vaginal discharge or systemic sym ptoms. Physical Examination: Exam was chaperoned by JACKELINE Steiner. She has multiple superficial ulcers to her bilateral labia minora and majora. Otherwise exam unremarkable. Test Results: We will check urine, , herpes testing, gonorrhea and Chlamydia testing. Emergency Department Course and Treatment: Patient was advised this is likely herpes infection. Will send testing. Will cover for gonorrhea and chlamydia. She received azithromycin and Rocephin. Patient will be started on valacyclovir 1 g twice a day for 7 days. Follow-up with primary care. Treatment Plan: As above Disposition: Discharge Impression: Genital herpes This note was generated with [employer] dictation software. It may contain incorrect words, spelling, and punctuation that were not noted in review of the chart prior to signing ED Disposition - Plan for ED Patient: Referrals: Care Physician,No Primary [Primary Care Provider] -
--- NOTE | 2020-02-25 20:52 | ED.DEP ---
ED Disposition - Plan for ED Patient: Instructions: Herpes Simplex Virus Culture and Typing Prescriptions: Valacyclovir HCl [Valtrex] 1,000 mg PO BID 7 Days #14 tab Prescription Printed Referrals: Malathi Pichardo [NON-STAFF] -
[2020-02-25 21:14] LABS: Bacteria 0 SEEN /hpf (None Seen); Squamous Epithelial Cells - UA 0 SEEN /hpf (5-10)
[2020-02-25 21:18] LABS: Color, Urine Yellow (Yellow); Glucose, Dipstick Normal (Normal); Internal QC Validated? YES +Cl - CLEAR BKGD; Ketone-Dipstick 5 mg/dl (Negative); Leukocyte Esterase-Dipstick 500 /ul (Negative); Nitrite-Dipstick Negative (Negative); Occult Blood-Urine 25 /ul (Negative); Pregnancy, Urine Negative Negative; Protein-Dipstick 15 mg/dl (Negative); Urine Bilirubin Dipstick 1 mg/dL (Negative); Urine Clarity Clear (Clear); Urine Urobilinogen 4 mg/dl (Normal)
[2020-02-25] MEDS: Azithromycin 250 MG Tablet 1000 MG PO (21:21)
[2020-02-25] MEDS: Ceftriaxone 500 MG Vial 250 MG IM (21:23)
[2020-02-25 21:25] LABS: Mucous, Urine RARE /hpf (<or=2+); Red Blood Cells-Urine 0-5 SEEN /hpf (0-5); White Blood Cells 5-10 SEEN /hpf (0-5)
[2020-02-25 23:11] LABS: Chlamydia Trachomatis by PCR Negative (Negative); Neisserai gonorrhoeae by PCR Negative (Negative); Probe Check PASS; Sample Adequacy Control PASS; Specimen Processing Control PASS
== END 2020-02-25 21:45 | disposition home or self-care (01) ==
PROVIDERS: Emergency Provider Emergency Medicine
DX: A60.00 Herpesviral infection of urogenital system, unspecified (principal); Z72.0 Tobacco use
CPT/HCPCS: 81001; 81025; 87255; 87491; 87591; 96372; 99282

== ENCOUNTER 2020-10-13 06:41 | Emergency (ER) | payer OTHER, MEDICAID, SELFPAY ==
[2020-10-13 06:42] VITALS: BP 144/76; PULSE 92; RESP 17; TEMP 35.8; O2SAT 100; BMI 41.3
--- NOTE | 2020-10-13 06:49 | RAD_ITS ---
STUDY: X-RAY CHEST REASON FOR EXAM: Female, 19 years old. Cough TECHNIQUE: Single AP portable view of the chest. COMPARISON: None. FINDINGS: The lungs are clear and expanded. There is no demonstrated pleural abnormality. Normal size heart. Normal mediastinum and danilo. Normal visualized pulmonary arteries. Normal visualized aortic arch and descending thoracic aorta. There are diffuse degenerative changes of the visualized thoracic spine. Normal visualized ribs, clavicles, and shoulders. There is no demonstrated abnormality of the visualized soft tissue structures of the upper abdomen. RAD/Chest 1 View (Portable) IMPRESSION: No demonstrated acute cardiopulmonary process. Electronically Signed: Maria Luz Beck MD at 7:56 EDT Tel , Service support ,
--- NOTE | 2020-10-13 06:49 | ED.VIS.GEN ---
History of Present Illness Chief Complaint: Cough Informant: Patient Narrative: 19-year-old female presents for evaluation of 10 days of cough. Patient states symptoms began 10 days ago and she has been experiencing sneezing slight nasal congestion, sore throat, and cough with white sputum production. She states that each day the cough seems to be worse. Patient denies any fevers or chills. She denies any myalgias, diarrhea, vomiting. She states that she has a 1-year-old at home and her mother would like her checked out before she is around the child again. She denies any known lung conditions. - Past Medical History (1) Anxiety and depression Status: Chronic Past Medical History - Allergies and Home Meds Allergies/Adverse Reactions: Allergies chocolate flavor Allergy (Verified 02/25/20 20:31) Anaphylaxis Primary Care Physician: Myra Barakat MD [STAFF PHYSICIAN] - (Primary care follow-up or follow-up with primary care of your choice) Surgical History: noncontributory Lives: With Family Smoking Status: Current every day smoker Drugs: None Review of Systems General: Denies: Chills, Fever, Sweats Eyes: Denies: Visual changes - bilaterally, Diplopia ENT: Reports: Sore throat, - - Sneezing and congestion. Denies: Rhinorrhea Cardiovascular: Denies: Chest pain, Palpitations Respiratory: Reports: Cough, Sputum. Denies: Dyspnea, Dyspnea on exertion Gastrointestinal: Denies: Abdominal pain, Nausea, Vomiting, Diarrhea, Melena, Hematochezia Genitourinary: Denies: Dysuria, Hematuria, Frequency Musculoskeletal: Denies: Back pain, Extremity Pain Skin: Denies: Rash, Wounds Neurological: Denies: Headache, Weakness, Numbness Physical Exam Vital Signs/Narrative: Vital Signs Temp Pulse Resp BP Pulse Ox 10/13/20 06:42 96.5 F L 92 17 144/76 H 100 Inital Vital Signs reviewed: Yes General: Well nourished, Well developed, Obese, No Acute Distress Head: Normocephalic, Atraumatic Eyes: Perrl, EOMI ENT: Moist mucous membranes, Nasal congestion Neck: Supple, Nontender Cardiovascular: Regular rate, Regular rhythm, No murmurs Respiratory: No distress, CTA bilaterally, Chest nontender Abdomen: Soft, Nontender, Nondistended, Normal bowel sounds Back: Nontender, Normal Inspection Extremities: Nontender, No edema Skin: Normal color, No rash Neurological: Alert, Oriented x3, Cranial nerves II-XII grossly intact, Normal Strength, Normal Sensation Psychological: Normal affect, Normal Mood Diagnostic/Tx/Re-eval Clinical Impression(s) from Imaging Studies Chest X-Ray 10/13/20 06:49 IMPRESSION: No demonstrated acute cardiopulmonary process. Electronically Signed: Maria Luz Beck MD at 7:56 EDT Tel , Service support , - Medical Decision Making Covid test is negative. My interpretation of the single view portable chest x-ray is no acute infiltrate. Normal mediastinal silhouette. Patient's vital signs are normal. She has 10 days of cough and sneezing. This could be viral URI this could also be allergic. Patient be discharged home with supportive care instructions to follow-up if not improving ED Disposition - Plan for ED Patient: Disposition: Home or Assisted Living Diagnosis: Cough Instructions: ED URI, Viral, No Abx (Adult) Prescriptions: Cetirizine HCl/Pseudoephedrine [Zyrtec-D Tablet] 1 each PO BID PRN #10 tab.er.12h PRN Reason: Allergies Transmission Status: Received by [facility]/pharmacy #[id number] Referrals: Myra Barakat MD [STAFF PHYSICIAN] - (Primary care follow-up or follow-up with primary care of your choice)
[2020-10-13 07:36] VITALS: BP 119/71; PULSE 75; RESP 16; O2SAT 99
== END 2020-10-13 07:37 | disposition home or self-care (01) ==
PROVIDERS: Emergency Provider Emergency Medicine
DX: R05 Cough (principal); J02.9 Acute pharyngitis, unspecified; R09.81 Nasal congestion; E66.9 Obesity, unspecified; Z68.41 Body mass index [BMI] 40.0-44.9, adult; F17.200 Nicotine dependence, unspecified, uncomplicated
CPT/HCPCS: 71045; 87426; 99282

== ENCOUNTER 2021-02-06 03:01 | Emergency (ER) | payer OTHER, MEDICAID, SELFPAY ==
[2021-02-06 03:02] VITALS: BP 141/76; PULSE 76; RESP 12; TEMP 36.9; O2SAT 100; BMI 38.4
--- NOTE | 2021-02-06 03:12 | RAD_ITS ---
EXAM: XR LEFT KNEE COMPLETE, 4 OR MORE VIEWS : 1999 CLINICAL INDICATION: trauma, pain TECHNIQUE: Four or more views of the left knee. This report was created using [employer] report generation technology. COMPARISON: None. FINDINGS: BONES/JOINTS: Fragmentation at the tibial tuberosity. No acute fracture. No subluxation. Normal alignment. Preservation of the joint space. No sclerotic or destructive changes observed. SOFT TISSUES: Prepatellar soft tissue swelling. No radiopaque foreign body. RAD/Knee 4 or More Views IMPRESSION: 1. Prepatellar soft tissue swelling. 2. Fragmentation at the tibial tuberosity. This could be chronic, but an acute fracture is not excluded, correlate for focal symptoms here. at [id number] Reported and signed by: Deep Moore MD Electronically Signed: Deep Moore MD at 4:15 EDT Tel , Service support ,
--- NOTE | 2021-02-06 03:13 | ED.VIS.LOWEX ---
HPI History of Present Illness Chief Complaint: Lower Extremity Injury Informant: patient Narrative Narrative: At about midnight, the patient slipped on a wet floor. She landed on her left knee. No other injury. She has been icing it since. She is able to walk but it hurts. She has a history of multiple injuries to this knee before. She states she pulls tendons off the bones and then there was turn into bone. Rest makes it better and using it makes it a little bit worse. [facility] PFS Medical History History of ankle fracture Home Medications naproxen [Naprosyn] 500 mg PO BID PRN #20 tab 02/06/21 [Rx Last Taken Unknown] Allergy/AdvReac Type Severity Reaction Status Date / Time chocolate flavor Allergy Anaphylaxis Verified 02/06/21 03:01 Surgical History History of tonsillectomy and adenoidectomy Social History Smoking Status: Current every day smoker tobacco type: cigarettes ROS ROS ED Constitutional Constitutional ED: Denies chills or fever(s) Gastrointestinal Gastrointestinal: Denies nausea or vomiting Musculoskeletal Musculoskeletal: Reports arthralgias and other Details: See history of present illness. ; Denies back pain or neck pain Integumentary Reports Abrasions and other Details: Slight abrasion/contusion just below left knee. ; Denies rash Neurologic Neurologic: Denies headache(s) Hematologic/Lymphatic Hematologic/Lymphatic: Denies easy bleeding or easy bruising EXAM Physical Exam Const Vital Signs: 02/06/21 03:02 Temperature 98.4 F Temperature Source Oral Pulse Rate 76 Respiratory Rate 12 Blood Pressure 141/76 H Blood Pressure Mean 97 Pulse Ox 100 Oxygen Delivery Method Room Air Positive well nourished and well developed General Appearance ED: well developed HEENT normocephalic and atraumatic Resp normal respiratory effort Back/Spine no CVA tenderness Extremity Extremity Narrative: There is a slight contusion/abrasion just medial to the tibial tuberosity on the left. There may be a slight effusion. Mild tenderness around the knee but is nonfocal. Her range of motion is actually reasonably good. Extensor mechanism is fully intact. No indication of joint laxity with varus or valgus stress. Due to the size of the leg and some discomfort is a little hard to get a good Michelle test. General Extremety ED: Negative for edema General Extremity: Negative for edema Psych mental status grossly normal Skin Trauma: abrasion MDM MDM MDM Narrative Medical decision making narrative: X-rays showed signs of the patient's old Sly-Schlatter's disease which she states she did have when she was younger. There is question of a small fracture through one of the ossification centers that could be old or new. She does have some tenderness in that area. But that is not the only spot that sore. Her extensor mechanism is fully intact. I do not think this needs in the immobilizer. I think that would create more stiffness than benefit. We will use an Miguel wrap, nonsteroidals and I will write her off work for couple days. She will follow up with her physician. I patient no discharge. She then wanted a test just to make sure she was not . This was negative. We will get her home on nonsteroidals. I will give her a dose of Naprosyn and an Miguel wrap here. Lab Data Labs: Laboratory Results - last 24 hr 02/06/21 04:51 Urine Test Negative Radiography Diagnostic Testing: Radiology Impression Knee X-Ray 02/06/21 03:12 IMPRESSION: 1. Prepatellar soft tissue swelling. 2. Fragmentation at the tibial tuberosity. This could be chronic, but an acute fracture is not excluded, correlate for focal symptoms here. at 0415 Reported and signed by: Deep Moore MD Electronically Signed: Deep Moore MD at 4:15 EDT Tel , Service support , Discharge Plan Triage Chief Complaint: Lower Extremity Injury ED Provider: Praveen Jones Dx/Rx/DC Orders Clinical Impression: Contusion of knee, left, H/O Sly-Schlatter disease, Fall from slipping Instructions: Bone Contusion, ED Knee Sprain Prescriptions: New naproxen [Naprosyn] 500 mg tablet 500 mg PO BID PRN (Reason: pain) Qty: 20 RF: 0 Stand Alone Forms: ED Work / School Excuse Primary Care Provider: Care Physician,No Primary Referrals: Giovanni Perez MD [STAFF PHYSICIAN] - 3-5 Days if not improving Care Physician,No Primary [Primary Care Provider] - Disposition Disposition: Home, Self Care
[2021-02-06 04:57] LABS: Internal QC Validated? YES +Cl - CLEAR BKGD; Pregnancy, Urine Negative Negative
[2021-02-06] MEDS: Naproxen 375 MG Tablet PO (05:21)
== END 2021-02-06 05:37 | disposition home or self-care (01) ==
PROVIDERS: Emergency Provider Emergency Medicine
DX: S80.02XA Contusion of left knee, initial encounter (principal); M92.522 Juvenile osteochondrosis of tibia tubercle, left leg; W01.0XXA Fall on same level from slipping, tripping and stumbling without subsequent striking against object, initial encounter; Y93.9 Activity, unspecified; Y92.9 Unspecified place or not applicable; F17.210 Nicotine dependence, cigarettes, uncomplicated
CPT/HCPCS: 73564; 81025; 99283

== ENCOUNTER 2021-02-23 19:00 | Emergency (ER) | payer OTHER, MEDICAID, SELFPAY ==
[2021-02-23 19:01] VITALS: BP 140/73; PULSE 89; RESP 16; TEMP 35.9; O2SAT 97; BMI 37.1
--- NOTE | 2021-02-23 20:35 | EDS_ITS ---
HPI HPI - Female History of Present Illness Chief Complaint: Female C/O Informant: patient Narrative Narrative: Patient is a 20-year-old female presenting for concern of . She states that for the past week she has positive test in the morning but they are negative by the end of the day. She has not had a period since August but notes that she has irregular menstrual cycles. She has 1 daughter has had 1 prior . Her first positive rise test was 2 weeks ago. She notes that she is been having nausea in the morning and sore breast. She has not followed up with [employer]. She denies any lower abdominal pain, abnormal vaginal discharge or vaginal bleeding. [facility] Medical History History of ankle fracture Home Medications ondansetron 4 mg PO Q8H PRN #14 tab 02/23/21 [Rx Last Taken Unknown] Allergy/AdvReac Type Severity Reaction Status Date / Time chocolate flavor Allergy Anaphylaxis Verified 02/23/21 19:04 Surgical History History of tonsillectomy and adenoidectomy Social History Smoking Status: Current every day smoker tobacco type: cigarettes ROS ROS ED Constitutional Constitutional ED: Denies chills, fever(s) or malaise Eyes Eyes: Denies blurry vision or loss of vision ENT ENT ED: Denies rhinorrhea or sore throat Cardiovascular Cardiovascular: Denies chest pain or dizziness Respiratory/Chest Respiratory/Chest: Denies cough or dyspnea Gastrointestinal Gastrointestinal: Reports nausea; Denies abdominal pain or vomiting Genitourinary Genitourinary ED: Denies dysuria, hematuria or urinary frequency Musculoskeletal Musculoskeletal: Denies arthralgias or myalgias Integumentary Denies rash or wounds Neurologic Neurologic: Denies focal weakness or headache(s) Psychiatric Psychiatric: Denies anxiety or behavioral changes EXAM Physical Exam Const Vital Signs: 02/23/21 19:01 Temperature 96.7 F L Temperature Source Temporal Pulse Rate 89 Respiratory Rate 16 Blood Pressure 140/73 H Blood Pressure Mean 95 Pulse Ox 97 Oxygen Delivery Method Room Air Positive well nourished, well developed and no apparent distress General Appearance ED: well developed HEENT Reports normocephalic and moist mucous membranes atraumatic Nose: no nasal discharge External Ear: external ears normal Mouth ED: Yes moist mucous membranes normal Eyes PERRL and EOMs intact bilaterally Neck full ROM and no meningeal signs Chest Wall inspection of chest normal Resp normal respiratory effort and normal air movement Cardio regular rate and regular rhythm GI normal to inspection, nondistended, normoactive bowel sounds Extremity normal to inspection and full ROM Neuro oriented x3 and no focal motor deficits Psych mental status grossly normal and thought process normal Skin no rashes or lesions noted and no wounds MDM MDM MDM Narrative Medical decision making narrative: Patient's test is negative. She is well-appearing. She is not instructed to follow-up with [employer] and repeat test in 1 week if she continues to have symptoms. She is instructed to treat her self as if she is . She will be given a description for Zofran. Lab Data Labs: Laboratory Results - last 24 hr 02/23/21 20:45 Urine Test Negative Discharge Plan Triage Chief Complaint: Female C/O ED Provider: Eleanor Dc Dx/Rx/DC Orders Clinical Impression: Concern about unplanned without diagnosis, Nausea Instructions: ED Diet for Vomiting or ... Prescriptions: New ondansetron 4 mg tablet,disintegrating 4 mg PO Q8H PRN (Reason: nausea and vomiting) Qty: 14 RF: 0 Primary Care Provider: Care Physician,No Primary Referrals: Rosi Mcguire MD [STAFF PHYSICIAN] - Care Physician,No Primary [Primary Care Provider] - Activity Restrictions/Additional Instructions: Your test was negative. However as we discussed, if you are having positive home test, more than likely your just early and still are . Treat yourself as if you are and retake test in 1 week. Follow-up with [employer]. Avoid tobacco and alcohol. Disposition Disposition: Home, Self Care Discharge Date/Time: 02/23/21 21:51
[2021-02-23 21:15] LABS: Internal QC Validated? YES +Cl - CLEAR BKGD; Pregnancy, Urine Negative Negative
== END 2021-02-23 21:51 | disposition home or self-care (01) ==
PROVIDERS: Emergency Provider Emergency Medicine
DX: R11.0 Nausea (principal); Z32.02 Encounter for pregnancy test, result negative; F17.210 Nicotine dependence, cigarettes, uncomplicated
CPT/HCPCS: 81025; 99282

== ENCOUNTER 2021-04-26 20:38 | Emergency (ER) | payer MEDICAID, SELFPAY ==
[2021-04-26 20:39] VITALS: BP 123/69; PULSE 87; RESP 18; TEMP 36.2; O2SAT 97; BMI 37.5
--- NOTE | 2021-04-26 20:54 | CT_ITS ---
INDICATION: head injury EXAMINATION: CT BRAIN - CT Head or Brain W/O Contrast Injection TECHNIQUE: Multiple axial images were obtained of the head without intravenous contrast. A radiation dose optimization technique was used for this scan. IV Contrast dosage and agent: None. COMPARISON: CT head dated 06/21/2018. FINDINGS: BRAIN PARENCHYMA: No intra- or extra-axial hemorrhage. No evidence of acute infarct. No intracranial mass or mass effect. There is preservation of the chavez/white matter interface. Posterior fossa structures are unremarkable. CSF SPACES: Appropriate for age. No hydrocephalus. Basal cisterns are patent. CALVARIUM, SKULL BASE, PARANASAL SINUSES AND MASTOID AIR CELLS: Clear. No discrete lytic or blastic abnormalities. Bony nasal septum is deviated to the right. There is a nose ring. ORBITS: Both globes, extraocular muscles, optic nerves and retrobulbar fat appear unremarkable. ASPECTS Score for Acute Strokes: 10 CT/Brain/Head without Contrast IMPRESSION: Negative Brain CT without contrast. Electronically Signed: Kong Carlos DO at 22:36 EDT Tel , Service support ,
[2021-04-26] MEDS: Ondansetron ODT 4 MG Tablet PO (20:57)
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
[2021-04-26 22:48] VITALS: RESP 16
== END 2021-04-26 22:54 | disposition home or self-care (01) ==
PROVIDERS: Emergency Provider Emergency Medicine
DX: S09.90XA Unspecified injury of head, initial encounter (principal); R11.0 Nausea; V89.2XXA Person injured in unspecified motor-vehicle accident, traffic, initial encounter; Y93.9 Activity, unspecified; Y92.9 Unspecified place or not applicable; F17.210 Nicotine dependence, cigarettes, uncomplicated
CPT/HCPCS: 70450; 99283

== ENCOUNTER 2021-06-29 09:05 | Emergency (ER) | payer OTHER, MEDICAID, SELFPAY ==
[2021-06-29 09:06] VITALS: BP 115/78; PULSE 114; RESP 20; TEMP 36.4; O2SAT 97; BMI 36.4
--- NOTE | 2021-06-29 09:37 | EDS_ITS ---
HPI HPI - URI History of Present Illness Chief Complaint: Sore Throat Informant: patient Narrative Narrative: Patient states she has had about 2 days of a sore throat. It sore on both sides. She is able to eat and drink. [id number] meds helped. She has no fevers or chills. She does have some slightly sore lymph nodes. No cough. No trouble breathing. No myalgias. No nausea vomiting diarrhea. No known exposure to Covid. I asked the patient what her primary concern was today. She said she did not know. ROS ROS ED Constitutional Constitutional ED: Denies fever(s) ENT ENT ED: Reports sore throat; Denies ear pain or rhinorrhea Cardiovascular Cardiovascular: Denies chest pain Respiratory/Chest Respiratory/Chest: Denies cough or dyspnea Gastrointestinal Gastrointestinal: Denies nausea or vomiting Musculoskeletal Musculoskeletal: Denies myalgias Integumentary Denies rash Neurologic Neurologic: Denies headache(s) Endocrine Endocrinology: Denies polydipsia or polyuria Allergic/Immunologic Allergic/Immunologic ED: Denies mouth swelling, tongue swelling or urticaria PFSH PFS Medical History History of ankle fracture Home Medications NK 06/29/21 [History Last Taken Unknown] Allergy/AdvReac Type Severity Reaction Status Date / Time chocolate flavor Allergy Anaphylaxis Verified 06/29/21 09:22 Surgical History History of tonsillectomy and adenoidectomy Social History Smoking Status: Current every day smoker tobacco type: cigarettes EXAM Physical Exam Const Vital Signs: 06/29/21 09:06 Temperature 97.5 F L Temperature Source Temporal Pulse Rate 114 H Respiratory Rate 20 H Blood Pressure 115/78 Blood Pressure Mean 90 Pulse Ox 97 Oxygen Delivery Method Room Air Positive well nourished, well developed and obese General Appearance ED: well developed and NAD; Negative for pallor Nutritional Appearance: obese HEENT HEENT Narrative: Patient's pharynx is mildly red. She has had prior tonsillectomy. She does have what appears to be a tonsil lift on the upper right side. I attempted to remove this with a Q-tip but was not able to get thi s to come out. It does not appear to be a pustule or an exudate. There is no swelling. Her voice is normal. No sinus tenderness. normocephalic and atraumatic Eyes PERRL and EOMs intact bilaterally Neck supple and no meningeal signs Neck Narrative: No notable lymphadenopathy. She has a few shotty lymph nodes anteriorly but they are equal and not notably tender. Resp normal respiratory effort and clear to auscultation bilaterally Auscultation: Negative for rales, rhonchi or wheezes Cardio Rate: regular rate Rhythm: regular rhythm GI non-tender Palpation: soft Back/Spine no CVA tenderness Neuro Sensorium / Orientation: alert Psych mental status grossly normal Skin General Skin Exam: Negative for jaundice or pallor Rashes: no rashes MDM MDM MDM Narrative Medical decision making narrative: Patient's rapid strep is negative. Her symptoms are most consistent with viral pharyngitis. She does have a tonsillolith but I do not think this is the source of her symptoms because the area is not notably tender and her symptoms are bilateral and the tonsillolith is only seen on the right. Patient can be treated with [id number] meds for symptomatic control. If she develops further pain, swelling, trouble swallowing, fevers or other concerns she should return. Lab Data Attestation: I reviewed the patient's lab results. Discharge Plan Triage Chief Complaint: Sore Throat ED Provider: Praveen Jones Dx/Rx/DC Orders Clinical Impression: Pharyngitis, Tonsillolith Instructions: ED Pharyngitis, Viral Prescriptions: No Action NK RF: 0 Primary Care Provider: Care Physician,No Primary Referrals: Franny Castillo MD [STAFF PHYSICIAN] - 3-5 Days if not improving Care Physician,No Primary [Primary Care Provider] - Disposition Disposition: Home, Self Care
[2021-06-29 10:19] VITALS: PULSE 72; RESP 16; O2SAT 99
--- NOTE | 2021-06-29 10:20 | ED.RN ---
THIS NURSE REVIEWED D/C INSTRUCTIONS WITH PT.PT VERBALIZED UNDERSTANDING OF INSTRUCTIONS. PT DENIES FURTHER NEEDS OR QUESTIONS AT THIS TIME
== END 2021-06-29 10:21 | disposition home or self-care (01) ==
LOC: ED 09:58
PROVIDERS: Emergency Provider Emergency Medicine
DX: J02.9 Acute pharyngitis, unspecified (principal); J35.8 Other chronic diseases of tonsils and adenoids; F17.210 Nicotine dependence, cigarettes, uncomplicated
CPT/HCPCS: 87880; 99282

== ENCOUNTER 2021-09-26 12:52 | Emergency (ER) | payer OTHER, MEDICAID, SELFPAY ==
[2021-09-26 12:53] VITALS: BP 135/81; PULSE 103; RESP 14; TEMP 35.2; O2SAT 97; BMI 35.3
--- NOTE | 2021-09-26 13:32 | EX.ED.VIS.HA ---
HPI History of Present Illness Chief Complaint: Headache Informant: patient Onset/Context/Timing Onset: Days (4) Context: Gradual Timing: Intermittent Quality -Headache: Positive for Other (Stabbing) Location: Frontal Worsened by: Standing, coughing Relieved by: Tylenol Associated Symptoms/Injury Associated Symptoms: Positive for Photophobia; Negative for Fever, Nausea, Vomiting, Sore Throat, Sinus Pressure, Numbness, Tingling, Preceding Aura, Visual Changes, Blurred Vision and Visual Loss Injury - HASSAN: Negative for Direct Trauma Narrative Narrative: Patient presents with a headache that has been getting worse over the past 4 days. Patient states it is intermittent. Patient describes it as stabbing. Patient states it is over the frontal area. Patient states it is worse in the morning. Patient states it is worse whenever she stands or coughs. Patient states Tylenol does seem to help with it. Patient admits to some photophobia. Patient denies any other visual changes or scotoma. Patient denies any paresthesias or weakness. Patient denies any nausea or vomiting. Patient denies any sore throat or sinus pressure. Patient denies any trauma or injury. [facility] Medical History History of ankle fracture Home Medications NK 06/29/21 [History Last Taken Unknown] Allergy/AdvReac Type Severity Reaction Status Date / Time chocolate flavor Allergy Anaphylaxis Verified 09/26/21 12:53 Surgical History History of tonsillectomy and adenoidectomy Social History Smoking Status: Current every day smoker tobacco type: cigarettes ROS ROS ED Constitutional Constitutional ED: Denies chills or fever(s) Eyes Eyes: Denies blurry vision or change in vision ENT ENT ED: Reports ear pain right; Denies rhinorrhea or sore throat Cardiovascular Cardiovascular: Denies chest pain or palpitations Respiratory/Chest Respiratory/Chest: Reports cough; Denies dyspnea Gastrointestinal Gastrointestinal: Denies nausea or vomiting Genitourinary Genitourinary ED: Denies dysuria or hematuria Musculoskeletal Musculoskeletal: Reports neck pain; Denies back pain Integumentary Denies abscess or rash Neurologic Neurologic: Reports headache(s); Denies weakness Allergic/Immunologic Allergic/Immunologic ED: Denies mouth swelling or urticaria EXAM Physical Exam Const Vital Signs: 09/26/21 12:53 09/26/21 15:00 Temperature 95.4 F L Temperature Source Temporal Pulse Rate 103 H 74 Respiratory Rate 14 14 Blood Pressure 135/81 H Blood Pressure Mean 99 Pulse Ox 97 Oxygen Delivery Method Room Air Positive well nourished and well developed General Appearance ED: well developed and NAD HEENT Reports moist mucous membranes Eyes PERRL and EOMs intact bilaterally Neck supple and no JVD Resp normal respiratory effort and clear to auscultation bilaterally Cardio regular rate, regular rhythm and no murmurs GI normal to inspection, nondistended, normoactive bowel sounds and non-tender Palpation: soft Extremity normal to inspection General Extremety ED: Negative for edema or tenderness General Extremity: Negative for edema Neuro oriented x3, CN's II-XII intact bilaterally and no sensory deficits noted Sensorium / Orientation: awake and alert Motor Exam: strength 5/5 throughout Psych mental status grossly normal Skin no rashes or lesions noted MDM MDM MDM Narrative Medical decision making narrative: Patient was given IV fluids, Reglan, and Benadryl. CT scan of the brain was obtained. There is no acute intracranial abnormality. This was interpreted by the radiologist and reviewed by myself. Patient was feeling better on reevaluation. Patient was advised to rest in a dark quiet room. Patient was instructed to drink plenty of fluids. Patient was instructed to follow-up with her primary care physician in 5 to 7 days. Patient understood and was agreeable with the plan. All questions were answered. Radiography Diagnostic Testing: Clinical Impression(s) from Imaging Studies Brain CT 09/26/21 13:36 IMPRESSION: Normal unenhanced CT scan of the brain. Electronically Signed: Derrell Suresh MD at 14:16 EDT , Discharge Plan Triage Chief Complaint: Headache ED Provider: Giovanni Amin Dx/Rx/DC Orders Clinical Impression: Headache, Obesity (BMI 30-39.9) Instructions: ED Headache Unspecified Prescriptions: No Action NK RF: 0 Primary Care Provider: Care Physician,No Primary Referrals: Rah Gotti MD [STAFF PHYSICIAN] - Care Physician,No Primary [Primary Care Provider] - Disposition Disposition: Home, Self Care
--- NOTE | 2021-09-26 13:36 | CT_ITS ---
STUDY: CT BRAIN WITHOUT CONTRAST REASON FOR EXAM: Female, 20 years old. 4 day history of headaches. RADIATION DOSAGE (If Supplied By Facility): CTDIvol = ( 47.06 ) mGy, DLP = ( 819.74 ) mGycm TECHNIQUE: Transaxial CT imaging of the brain was performed without administration of intravenous contrast material. Individualized dose optimization techniques were used for this CT. COMPARISON: No relevant priors. FINDINGS: Normal soft tissue structures. Normal calvarium. Normal size ventricles and extra-axial spaces for the patient''s age. Normal white matter tracts of the cerebral hemispheres. Normal basal ganglia and thalami. Normal brainstem. Normal cerebellum. There is no intracranial hemorrhage. There are no findings of an acute ischemic infarction. Normal visualized paranasal sinuses. CT/Brain/Head without Contrast IMPRESSION: Normal unenhanced CT scan of the brain. Electronically Signed: Derrell Suresh MD at 14:16 EDT ,
--- NOTE | 2021-09-26 13:51 | CM.ED ---
JOANN Note: Referral Source: Case Find Referral Reason: No PCP SW met with patient who confirmed she had no PCP. SW provided patient with [facility] Healthcare Provider and Where to Go When. Patient voiced no additional needs or concerns. SW remains available if needs arise. Mary MONK
[2021-09-26] MEDS: DiphenhydrAMINE 50 MG/ML Syringe 25 MG IV (14:09)
[2021-09-26] MEDS: Metoclopramide 10 MG/2 ML Vial IV (14:09)
[2021-09-26] MEDS: 0.9% Normal Saline 1,000 ML 999 ML IV (14:09)
[2021-09-26 15:00] VITALS: PULSE 74; RESP 14
[2021-09-26 15:41] VITALS: PULSE 70; RESP 16
== END 2021-09-26 15:41 | disposition home or self-care (01) ==
PROVIDERS: Emergency Provider Emergency Medicine; Visit Provider Emergency Medicine
DX: R51.9 Headache, unspecified (principal); E66.9 Obesity, unspecified; F17.210 Nicotine dependence, cigarettes, uncomplicated; H53.149 Visual discomfort, unspecified; Z68.35 Body mass index [BMI] 35.0-35.9, adult
CPT/HCPCS: 70450; 96361; 96374; 96375; 99282; J7030; A4216

== ENCOUNTER 2022-10-15 11:31 | Emergency (ER) | payer OTHER, MEDICAID, SELFPAY ==
[2022-10-15 11:31] VITALS: BP 137/79; PULSE 76; RESP 18; TEMP 36.1; O2SAT 96; BMI 38.2
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
[2022-10-15] MEDS: Ketorolac 30 MG/ML Syringe IM (11:54)
== END 2022-10-15 12:15 | disposition home or self-care (01) ==
PROVIDERS: Emergency Provider Emergency Medicine; Visit Provider Emergency Medicine
DX: K62.89 Other specified diseases of anus and rectum (principal); F17.210 Nicotine dependence, cigarettes, uncomplicated
CPT/HCPCS: 96372; 99282